=== PATIENT | female | born 1975 | race Caucasian/White ===

== ENCOUNTER 2017-10-07 15:39 | Outpatient (CLI) | payer BC | END 2017-10-07 15:40 | disposition home or self-care (01) | LOC: BICMAMMO 15:39 | PROVIDERS: ATTEND Obstetrics & Gynecology | DX: Z12.31 Encounter for screening mammogram for malignant neoplasm of breast (principal) | CPT/HCPCS: 77063; 77067 ==

== ENCOUNTER 2019-04-06 08:18 | Outpatient (CLI) | payer BC ==
--- NOTE | 2019-04-06 09:58 | RAD ---
RIGHT SHOULDER 3 VIEWS: Date: 04/06/2019 HISTORY: Right arm pain, paresthesia right arm, numbness and tingling right hand. FINDINGS: Very mild degenerative and osteoarthrosis changes of the AC joint. No fracture, dislocation, or other acute process. IMPRESSION: Mild arthrosis and degenerative change right AC joint. POS: OFF
--- NOTE | 2019-04-06 10:03 | RAD ---
CERVICAL SPINE THREE VIEWS: HISTORY: Paresthesia, right arm. FINDINGS: The tip of the odontoid and C1 regions are partially obscured on the AP open-mouth view. Hypertrophic osteophytosis changes and facet arthrosis changes, most marked at C5-C6, evidence for spondylosis. N o abnormal prevertebral soft tissue swelling. IMPRESSION: 1. Cervical spondylosis, particularly at C5-C6. 2. No fracture or dislocation. Given concern for possible radiculopathy, a follow-up MRI study should be considered. POS: OFF
== END 2019-04-06 08:19 | disposition home or self-care (01) ==
LOC: BICRAD 08:18
PROVIDERS: ATTEND Physician Assistant
DX: M79.601 Pain in right arm (principal); R20.2 Paresthesia of skin; M47.812 Spondylosis without myelopathy or radiculopathy, cervical region; M19.011 Primary osteoarthritis, right shoulder
CPT/HCPCS: 36415; 72040; 80053; 80061; 82306; 82607; 82746; 84439; 84443; 85025

== ENCOUNTER 2019-04-20 07:39 | Outpatient (CLI) | payer BC ==
--- NOTE | 2019-04-20 09:47 | MRI ---
MRI CERVICAL SPINE: DATE: 04/20/2019. PROVIDED CLINICAL HISTORY: Neck pain and right arm radiculopathy. FINDINGS: Cervical alignment appears normal with the exception of minimal retrolisthesis of C5 on C6. Vertebra l body heights appear preserved. The visualized posterior fossa, cervicomedullary junction, and cerv ical spinal cord demonstrate normal signal and morphology. At C2-3, there is no significant central canal or foraminal narrowing apparent. At C3-4, there is no significant central canal or foraminal narrowing. At C4-5, there is no significant central canal or foraminal narrowing apparent. At C5-6, there is a broad-based disk bulge and bilateral uncinate process hypertrophy along with disk space height loss. There is effacement of the ventral subarachnoid space without cord contact or de formity. There is bilateral foraminal narrowing, moderate on the right and mild-moderate on the left . At C6-7, there is no significant central canal or foraminal narrowing apparent. At C7-T1, there is no significant central canal or foraminal narrowing apparent. IMPRESSION: Degenerative disk changes at C5-6 with associated right greater than left foraminal narrowing. POS: OFF
== END 2019-04-20 07:40 | disposition home or self-care (01) ==
LOC: TBSIIMAG 07:39
PROVIDERS: ATTEND Physician Assistant
DX: M47.812 Spondylosis without myelopathy or radiculopathy, cervical region (principal); R20.2 Paresthesia of skin; M48.02 Spinal stenosis, cervical region
CPT/HCPCS: 72141

== ENCOUNTER 2019-05-03 19:30 | Outpatient (CLI) | payer BC | END 2019-05-03 19:31 | disposition home or self-care (01) | LOC: SLEEPLAB 19:30 | PROVIDERS: ATTEND Physician Assistant | DX: R53.83 Other fatigue (principal); R51 Headache; R06.83 Snoring; R06.89 Other abnormalities of breathing; K21.9 Gastro-esophageal reflux disease without esophagitis; G47.33 Obstructive sleep apnea (adult) (pediatric); F32.9 Major depressive disorder, single episode, unspecified; G47.00 Insomnia, unspecified | CPT/HCPCS: 95810 ==

== ENCOUNTER 2019-05-19 20:30 | Outpatient (CLI) | payer BC | END 2019-05-19 20:31 | disposition home or self-care (01) | LOC: SLEEPLAB 20:30 | PROVIDERS: ATTEND Physician Assistant | DX: G47.33 Obstructive sleep apnea (adult) (pediatric) (principal); R51 Headache; R06.83 Snoring; R53.83 Other fatigue; J98.9 Respiratory disorder, unspecified | CPT/HCPCS: 95811 ==

== ENCOUNTER 2021-07-07 16:00 | Outpatient (CLI) | payer BC | END 2021-07-07 16:01 | disposition home or self-care (01) | LOC: SLEEPLAB 16:00 | PROVIDERS: ATTEND Internal Medicine Critical Care Medicine | DX: G47.33 Obstructive sleep apnea (adult) (pediatric) (principal); R63.4 Abnormal weight loss | CPT/HCPCS: 95800 ==